=== PATIENT | male | born 1975 | race Caucasian/White ===

== ENCOUNTER 2016-09-24 10:36 | Emergency (ER) | payer OTHER ==
[~2016-09-24] VITALS: Ht 193 cm; Wt 63.5 kg
--- NOTE | 2016-09-24 11:08 | PHYS DOC ---
Past Medical History Past Medical History: Other Additional Past Medical Histor: GENETIC KNEE CONDITION, SEASONAL ALLERGIES, CHRONIC BRONCHITIS,"MOLD LUNGS" Past Surgical History: Other Additional Past Surgical Histo: WISDOM TEETH REMOVAL Additional Information: PT STATES HE SMOKES A PACK OR MORE A DAY Alcohol Use: Heavy Additional Information: THREE TO FOUR MIXED DRINKS PER DAY Drug Use: None Adult General Chief Complaint Chief Complaint: COUGH HPI HPI Patient is a 41 year old male presents emergency department by way of EMS. 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 He states that he was coughing for about 8-10 seconds and became short of air he denies cough being productive. He states that he has bilateral hands to mid forearm tingling. He also states that he has having generalized weakness. She states that there is cardiac history of the family. He continues to state he is borderline diabetic. Patient denies any chest pain he does state however he short of air. He states that he is having epigastric pain and discomfort. Denies any nausea vomiting. Review of Systems Review of Systems Constitutional: Denies fever or chills [] Eyes: Denies change in visual acuity, redness, or eye pain [] HENT: Denies nasal congestion or sore throat [] Respiratory: cough and shortness of breath [] Cardiovascular: No additional information not addressed in HPI [] GI: Denies abdominal pain, nausea, vomiting, bloody stools or diarrhea [] : Denies dysuria or hematuria [] Musculoskeletal: Denies back pain or joint pain [] Integument: Denies rash or skin lesions [] Neurologic: Denies headache, focal weakness or sensory changes [] Endocrine: Denies polyuria or polydipsia [] Allergies Allergies Allergies Coded Allergies Type Severity Reaction Last Updated Verified No Known Drug Allergies 09/24/16 No Physical Exam Physical Exam Constitutional: Well developed, well nourished, no acute distress, non-toxic appearance. [] HENT: Normocephalic, atraumatic, bilateral external ears normal, oropharynx moist, no oral exudates, nose normal. [] Eyes: PERRLA, EOMI, conjunctiva normal, no discharge. [] Neck: Normal range of motion, no tenderness, supple, no stridor. [] Cardiovascular:Heart rate regular rhythm, no murmur [] Lungs & Thorax: Bilateral breath sounds clear to auscultation [] Abdomen: Bowel sounds hypoactive, soft, no tenderness, no masses, no pulsatile masses. [] Skin: Warm, dry, no erythema, no rash. [] Back: No tenderness Extremities: No tenderness, no cyanosis, no clubbing, ROM intact, no edema. [] Neurologic: Alert and oriented X 3, normal motor function, normal sensory function, no focal deficits noted. [] Psychologic: Affect normal, judgement normal, mood normal. [] Current Patient Data Vital Signs Vital Signs Date Time Temp Pulse Resp B/P (MAP) Pulse Ox O2 Delivery O2 Flow Rate FiO2 09/24/16 12:02 98.1 60 17 113/53 (73) 97 Room Air 98.1 Lab Values Laboratory Tests Test 09/24/16 11:20 White Blood Count 4.8 x10^3/uL (4.0-11.0) Red Blood Count 4.56 x10^6/uL (4.30-5.70) Hemoglobin 14.7 g/dL (13.0-17.5) Hematocrit 42.5 % (39.0-53.0) Mean Corpuscular Volume 93 fL (79-100) Mean Corpuscular Hemoglobin 32 pg (25-35) Mean Corpuscular Hemoglobin Concent 35 g/dL (31-37) Red Cell Distribution Width 12.7 % (11.5-14.5) Platelet Count 168 x10^3/uL (140-400) Neutrophils (%) (Auto) 61 % (31-73) Lymphocytes (%) (Auto) 30 % (24-48) Monocytes (%) (Auto) 7 % (0-9) Eosinophils (%) (Auto) 1 % (0-3) Basophils (%) (Auto) 1 % (0-3) Neutrophils # (Auto) 2.9 x10^3uL (1.8-7.7) Lymphocytes # (Auto) 1.4 x10^3/uL (1.0-4.8) Monocytes # (Auto) 0.3 x10^3/uL (0.0-1.1) Eosinophils # (Auto) 0.0 x10^3/uL (0.0-0.7) Basophils # (Auto) 0.1 x10^3/uL (0.0-0.2) Sodium Level 139 mmol/L (136-145) Potassium Level 3.9 mmol/L (3.5-5.1) Chloride Level 100 mmol/L (98-107) Carbon Dioxide Level 24 mmol/L (21-32) Anion Gap 15 (6-14) H Blood Urea Nitrogen 14 mg/dL (8-26) Creatinine 1.0 mg/dL (0.7-1.3) Estimated GFR (Cockcroft-Gault) 81.6 BUN/Creatinine Ratio 14 (6-20) Glucose Level 109 mg/dL (70-99) H Calcium Level 9.9 mg/dL (8.5-10.1) Total Bilirubin 0.6 mg/dL (0.2-1.0) Aspartate Amino Transferase (AST) 15 U/L (15-37) Alanine Aminotransferase (ALT) 19 U/L (16-63) Alkaline Phosphatase 52 U/L (46-116) Troponin I Quantitative < 0.017 ng/mL (0.000-0.055) Total Protein 7.9 g/dL (6.4-8.2) Albumin 4.5 g/dL (3.4-5.0) Albumin/Globulin Ratio 1.3 (1.0-1.7) Laboratory Tests 09/24/16 11:20 Laboratory Tests 09/24/16 11:20 EKG EKG EKG completed with a heart rate of 58 sinus rhythm noted no ectopy no STEMI per Dr. Morris[] Radiology/Procedures Radiology/Procedures [][facility] [address] [place], [place] [id number] IMAGING REPORT Signed PATIENT: OCHOA CANCHOLA ACCOUNT: [id number] : 1975 LOCATION: ER AGE: 41 SEX: M EXAM STATUS: REG ER ORD. PHYSICIAN: CONSTANTINO GARCIA APRN REASON: SOA, weakness, numb PROCEDURE: CHEST PA & LATERAL Indication shortness of breath. Weakness. Numbness. PA and lateral views of the chest were obtained. No prior imaging is available. The heart and pulmonary vessels appear normal. The lungs are clear. There is no pleural fluid. There are occasional granulomas. There is no pleural fluid. There is no pneumothorax. The visualized bony structures appear grossly intact. IMPRESSION: No acute finding apparent in the chest DICTATED and SIGNED BY: DOROTEO PONCE MD DATE: 09/24/16 1148 CC: CLEO DE LEÓN; CONSTANTINO GARCIA APRN ~ Course & Med Decision Making Course & Med Decision Making Pertinent Labs and Imaging studies reviewed. (See chart for details) CBC, CMP, EKG, chest x-ray negative. Patient will be discharged home in stable condition with recommendations to take Zyrtec or Claritin to help with his nasal drainage which she states that he felt he got choked on drainage. Patient will be discharged home in stable condition signs symptoms to return back to the emergency department have been provided. Dragon Disclaimer Dragon Disclaimer This electronic medical record was generated, in whole or in part, using a voice recognition dictation system. Departure Departure Impression: Primary Impression: Cough Disposition: 01 HOME, SELF-CARE Condition: STABLE Patient Instructions: Cough, Adult, [id number] Additional Instructions: Activity as tolerated. Zyrtec or Claritin to help with nasal drainage and discharge. You may take [id number] cough medication for cough. Drink plenty of fluids. Follow-up through primary care physician as needed. Return back to emergency prior signs symptoms of become worse. CONSTANTINO GARCIA APRN September 24, 2016 11:08
[2016-09-24 11:37] LABS: CALCIUM 9.9 mg/dL (8.5-10.1); GFR 81.6; POTASSIUM 3.9 mmol/L (3.5-5.1)
[2016-09-24 11:42] LABS: ALBUMIN 4.5 g/dL (3.4-5.0); ALBUMIN/GLOBULIN RATIO 1.3 (1.0-1.7); TOTAL BILIRUBIN 0.6 mg/dL (0.2-1.0); TOTAL PROTEIN 7.9 g/dL (6.4-8.2)
[2016-09-24 11:44] LABS: BASO # 0.1 x10^3/uL (0.0-0.2); BASO % 1 % (0-3); EOS % 1 % (0-3); HEMATOCRIT 42.5 % (39.0-53.0); HEMOGLOBIN 14.7 g/dL (13.0-17.5); LYMPH # 1.4 x10^3/uL (1.0-4.8); LYMPH % 30 % (24-48); MEAN CORPUSCULAR HEMOGLOBIN 32 pg (25-35); MEAN CORPUSCULAR HGB CONC 35 g/dL (31-37); MEAN CORPUSCULAR VOLUME 93 fL (79-100); MONO % 7 % (0-9); NEUT % 61 % (31-73); PLATELET COUNT 168 x10^3/uL (140-400); RED BLOOD COUNT 4.56 x10^6/uL (4.30-5.70); RED CELL DISTRIBUTION WIDTH 12.7 % (11.5-14.5); WHITE BLOOD COUNT 4.8 x10^3/uL (4.0-11.0)
--- NOTE | 2016-09-24 11:53 | RAD ---
Indication shortness of breath. Weakness. Numbness. PA and lateral views of the chest were obtained. No prior imaging is available. The heart and pulmonary vessels appear normal. The lungs are clear. There is no pleural fluid. There are occasional granulomas. There is no pleural fluid. There is no pneumothorax. The visualized bony structures appear grossly intact. IMPRESSION: No acute finding apparent in the chest
[2016-09-24 12:02] VITALS: BP 113/53
--- NOTE | 2016-09-24 15:34 | EKG ---
[facility] [address] [place] [address] Test Date: 2016-09-24 Test Time: 11:20:05 Pat Name: OCHOA CANCHOLA Department: Room: Gender: M [employer]: : 1975 Requested By: CONSTANTINO GARCIA Order Number: [id number] Reading MD: Measurements Intervals Mack Rate: 58 P: 34 OH: 144 QRS: 59 QRSD: 96 T: 51 QT: 404 QTc: 400 Interpretive Statements SINUS RHYTHM QRS(T) CONTOUR ABNORMALITY CANNOT RULE OUT ANTEROSEPTAL MYOCARDIAL DAMAGE RI6.01 Unconfirmed report No previous ECG available for comparison
== END 2016-09-24 12:41 | disposition home or self-care (01) ==
LOC: EDBD 10:36 → ER 10:36
DX: R05 Cough (principal); R10.13 Epigastric pain; F17.200 Nicotine dependence, unspecified, uncomplicated; R73.03 Prediabetes
CPT/HCPCS: 36415; 71020; 80053; 84484; 85027; 93005; 99285-25